=== PATIENT | male | born 1975 | race American Indian/Alaskan Native ===

== ENCOUNTER 2017-09-06 13:00 | Emergency (ER) | payer OTHER ==
[2017-09-06 13:11] VITALS: BP 120/63
[2017-09-06] MEDS ORDERED: BABY ASPIRIN PO ONE (13:53)
--- NOTE | 2017-09-06 14:32 | XRay Report ---
ROUTINE CHEST, TWO VIEWS: HISTORY: chest pain. The trachea, heart, mediastinal contour, lung ott and bony thorax are unremarkable. IMPRESSION: Unremarkable chest x-ray.
[2017-09-06 14:41] LABS: Hematocrit 52.2 % (35.5-45.6); Hemoglobin 17.3 gm/dl (11.8-15.2); Mean Corpuscular HGB Conc 33 % (32-34); Mean Corpuscular Hemoglobin 30 pg (28-32); Mean Corpuscular Volume 90 fl (84-94); Platelet Count 117 K/mm3 (140-440); Red Cell Distribution Width 13.8 % (13.2-15.2)
--- NOTE | 2017-09-06 14:50 | Emergency Department Report ---
ED Chest Pain HPI - General Chief Complaint: Chest Pain Stated Complaint: CHEST PAIN Time Seen by Provider: 09/06/17 13:35 Source: patient Mode of arrival: Ambulatory Limitations: No Limitations - History of Present Illness Initial Comments: 42-year-old male past medical history none presents with complaint of 2 days of intermittent substernal chest discomfort. Rand at rest or with exertion. Denies fevers chills cough pleuritic chest pain or palpitations. Patient is not a smoker. Denies cocaine use. States his mother had a heart attack at age 56 and multiple strokes. States that chest discomfort feels slightly better when he lays down. States that when he exerts his anterior chest feels slightly worse. States it started approximately 2-3 days ago. Patient is currently awake alert and oriented 3 not in acute distress. Accompanied by significant other at bedside. Denies any recent travel or personal history of PE or DVT. Describes pain as an aching and is pointing toward his anterior sternal region. MD Complaint: chest pain Onset/Timin -: days(s) Onset: during rest Pain Location: substernal Severity: moderate Quality: aching Consistency: intermittent Improves With: movement, remaining still Aspirin use within the Past 7 Days: (0) No - Related Data On Oral Contraceptives: No Previous Rx's Medication Instructions Recorded Last Taken Type Ibuprofen [Motrin] 800 mg PO Q8HR PRN #15 tablet 09/06/17 Unknown Rx Allergies Allergy/AdvReac Type Severity Reaction Status Date / Time No Known Allergies Allergy Unverified 09/06/17 13:11 Heart Score - HEART Score History: Slightly suspicious EKG: Normal Age: < 45 Risk factors: 1-2 risk factors Troponin: < normal limit HEART Score: 1 ED Review of Systems ROS: Stated complaint: CHEST PAIN Other details as noted in HPI Constitutional: denies: chills, fever Eyes: denies: eye pain, eye discharge, vision change ENT: denies: ear pain, throat pain Respiratory: denies: cough, shortness of breath, wheezing Cardiovascular: chest pain. denies: palpitations Endocrine: no symptoms reported Gastrointestinal: denies: abdominal pain, nausea, diarrhea Genitourinary: denies: urgency, dysuria Musculoskeletal: denies: back pain, joint swelling, arthralgia Skin: denies: rash, lesions Neurological: denies: headache, weakness, paresthesias Psychiatric: denies: anxiety, depression Hematological/Lymphatic: denies: easy bleeding, easy bruising ED Past Medical Hx - Past Medical History Previous Medical History?: No - Surgical History Past Surgical History?: No - Social History Smoking Status: Former Smoker Substance Use Type: None - Medications Home Medications: Home Medications Medication Instructions Recorded Confirmed Last Taken Type Ibuprofen [Motrin] 800 mg PO Q8HR PRN #15 tablet 09/06/17 Unknown Rx ED Physical Exam - General Limitations: No Limitations General appearance: alert, in no apparent distress - Head Head exam: Present: atraumatic, normocephalic - Eye Eye exam: Present: normal appearance, PERRL, EOMI Pupils: Present: normal accommodation - ENT ENT exam: Present: mucous membranes moist - Neck Neck exam: Present: normal inspection - Respiratory Respiratory exam: Present: normal lung sounds bilaterally. Absent: respiratory distress - Cardiovascular Cardiovascular Exam: Present: regular rate, normal rhythm. Absent: systolic murmur, diastolic murmur, rubs, gallop - GI/Abdominal GI/Abdominal exam: Present: soft, normal bowel sounds - Rectal Rectal exam: Present: deferred - Extremities Exam Extremities exam: Present: normal inspection - Back Exam Back exam: Present: normal inspection - Neurological Exam Neurological exam: Present: alert, oriented X3 - Psychiatric Psychiatric exam: Present: normal affect, normal mood - Skin Skin exam: Present: warm, dry, intact, normal color. Absent: rash ED Course Vital Signs 09/06/17 13:08 Temperature 98.6 F Pulse Rate 55 L Respiratory 18 Rate Blood Pressure 120/63 O2 Sat by Pulse 99 Oximetry MORGAN score - Morgan Score Age > 65: (0) No Aspirin use within the Past 7 Days: (0) No 3 or more CAD Risk Factors: (0) No 2 or more Angina events in past 24 hrs: (0) No Known CAD with more than 50% Stenosis: (0) No Elevated Cardiac Markers: (0) No ST Deviation Greater than 0.5mm: (0) No MORGAN Score: 0 ED Medical Decision Making - Lab Data Result diagrams: 09/06/17 14:28 09/06/17 14:28 - Medical Decision Making A/P: Anterior chest discomfort, slightly elevated CK 1- d-dimer negative, chest x-ray unremarkable, labs are otherwise unremarkable including negative troponin. EKG is sinus. Early re-pole pattern. HEART Score and MORGAN scores low 2- patient does not have symptoms at this time. 3- vital signs stable for discharge. Case discussed with Dr. Pablo before discharge including review of lab work and EKG 4- patient advised to follow up with outpatient primary care and cardiology Critical care attestation.: If time is entered above; I have spent that time in minutes in the direct care of this critically ill patient, excluding procedure time. ED Disposition Clinical Impression: Elevated creatine kinase Chest pain Qualifiers: Chest pain type: unspecified Qualified Code(s): R07.9 - Chest pain, unspecified Disposition: TO HOME OR SELFCARE Is pt being admited?: No Does the pt Need Aspirin: No Condition: Stable Instructions: Chest Pain (ED), Dehydration (ED), Costochondritis (ED) Prescriptions: Ibuprofen [Motrin] 800 mg PO Q8HR PRN #15 tablet PRN Reason: Pain , Severe (7-10) Referrals: ISABELLE GARCIA MD [Staff Physician] - 3-5 Days [facility] [Provider Group] - 3-5 Days Forms: Accompanied Note, Work/School Release Form(ED) Time of Disposition: 16:13
[2017-09-06 14:52] LABS: INR 0.95 (0.87-1.13)
[2017-09-06 15:40] LABS: Total Cells Counted 100
[2017-09-06 15:41] LABS: Large Platelets 1+; Platelet Estimate Consistent w Auto; RBC Morphology Normal
[2017-09-06 15:59] LABS: BUN/Creatinine Ratio 13; Blood Urea Nitrogen 14 mg/dL (9-20); Calcium 9.4 mg/dL (8.4-10.2); Hemolysis Index 31
[2017-09-06 16:00] LABS: Creatine Kinase MB 1.9 ng/mL (0.0-4.0)
== END 2017-09-06 16:45 | disposition home or self-care (01) ==
LOC: ED 13:00
DX: R74.8 Abnormal levels of other serum enzymes (principal); R07.89 Other chest pain; Z87.891 Personal history of nicotine dependence
CPT/HCPCS: 36415; 71046; 80048; 82550; 82553; 84484; 85007; 85025; 85379; 85610; 85730; 93005; 93010